=== PATIENT | female | born 2000 | race Caucasian/White ===

== ENCOUNTER 2024-08-09 17:12 | Emergency (ER) | payer MEDICARE, MEDICAID | END 2024-08-09 18:15 | disposition home or self-care (01) | LOC: VM.ED 17:12 | DX: S50.311A Abrasion of right elbow, initial encounter (principal); S60.511A Abrasion of right hand, initial encounter; S80.211A Abrasion, right knee, initial encounter; V18.4XXA Pedal cycle driver injured in noncollision transport accident in traffic accident, initial encounter; Y93.55 Activity, bike riding | CPT/HCPCS: 12001; 99283 ==